=== PATIENT | female | born 1930 | race Caucasian/White ===

== ENCOUNTER → 2019-03-08 | Outpatient (CLI) | payer MEDICARE ==
[2019-03-08 12:49] LABS: ALANINE AMINOTRANSFERASE 24 U/L (12-78); ALBUMIN 3.5 g/dL (3.4-5.0); ANION GAP 5 mmol/L (5-15); CALCIUM 9.8 mg/dL (8.5-10.1); CHLORIDE 110 mmol/L (98-107); CREATININE 1.07 mg/dL (0.55-1.02)
[2019-03-08 12:59] LABS: ALKALINE PHOSPHATASE 105 U/L (45-117); BILIRUBIN,TOTAL 0.4 mg/dL (0.2-1.0); THYROID STIMULATING HORMONE 0.376 mIU/L (0.358-3.740); TOTAL PROTEIN 7.4 g/dL (6.4-8.2)
== END | disposition home or self-care (01) ==
LOC: CFH 11:31
PROVIDERS: ATTEND Nurse Practitioner
DX: R06.02 Shortness of breath (principal); E07.9 Disorder of thyroid, unspecified; R60.9 Edema, unspecified
CPT/HCPCS: 36415; 71046; 80053; 83880; 84443